=== PATIENT | male | born 1945 | race Caucasian/White ===

== ENCOUNTER 2021-02-03 13:25 | Emergency (ER) | payer MEDICARE ==
[2021-02-03 13:53] LABS: BASOPHIL 0.5 % (0-2); EOSINOPHIL 1.6 % (0-7); HCT 42.9 % (42.0-52.0); HGB 14.4 g/dl (13.2-18.0); LYMPHOCYTE 21.1 % (15-48); MCH 33.7 pg (25.0-31.0); MCHC 33.6 g/dL (32.0-36.0); MCV 100.5 fL (78.0-100.0); MONOCYTE 8.8 % (0-12); MPV 10.1 fL (6.0-9.5); NEUTROPHIL 67.6 % (41-80); NRBC 0; PLT 142 K/uL (150-400); RBC 4.27 M/uL (4.70-6.00); RDW 13.8 % (11.5-14.0); WBC 5.5 K/uL (4.0-10.5)
[2021-02-03 13:56] LABS: INR 1.09 (0.9-1.2); PROTHROMBIN TIME 13.4 SECONDS (11.4-13.6); PTT 29.7 SECONDS (22.2-34.7)
[2021-02-03 13:59] LABS: ALBUMIN 3.8 g/dL (3.4-5.0); BILIRUBIN - TOTAL 0.6 mg/dL (0.2-1.0); BUN/CREAT RATIO (CALC) 14.1 RATIO; CREATININE 1.28 mg/dL (0.67-1.17); GLOBULIN (CALCULATION) 4.2 g/dL; POTASSIUM 4.4 mmol/L (3.5-5.1)
[2021-02-03] MEDS ORDERED: METHADONE 5MG TA5 MG PO (18:13)
== END 2021-02-03 16:37 | disposition home or self-care (01) ==
LOC: FER 13:25
PROVIDERS: Emergency Medicine
DX: G45.9 Transient cerebral ischemic attack, unspecified (principal); T50.905A Adverse effect of unspecified drugs, medicaments and biological substances, initial encounter; G89.29 Other chronic pain; Z79.891 Long term (current) use of opiate analgesic
CPT/HCPCS: 36415; 70450; 70551; 71046; 80053; 82550; 84484; 85025; 85610; 85730; 93005